=== PATIENT | female | born 1995 | race Caucasian/White ===

== ENCOUNTER → 2017-08-25 | Outpatient (CLI) | payer OTHER ==
[2017-08-25 16:56] LABS: HCT 36.8 % (34.0-46.0); HGB 12.7 gm/dL (11.4-16.0); MCH 29.7 pg (25.0-35.0); MCHC 34.5 g/dL (31.0-37.0); MCV 85.9 fL (80.0-100.0); Mean Platelet Volume 7.3; Platelet Count 252 k/uL (150-450); RBC 4.28 m/uL (3.80-5.40); RDW 12.6 % (11.5-15.5); WBC 7.8 k/uL (4.0-11.0)
[2017-08-25 17:19] LABS: Glucose 75 mg/dL (74-99)
[2017-08-26 02:37] LABS: HIV AB P24 Non-Reactive (Non-Reactive); HIV P24 AG Non-Reactive (Non-Reactive)
--- NOTE | 2017-08-26 12:43 | US ---
EXAMINATION TYPE: Transabdominal DATE OF EXAM: 06/22/17 COMPARISON: NONE CLINICAL HISTORY: Z36 Confirm dates. EXAM PERFORMED: Transabdominal (TA) EXAM MEASUREMENTS: GESTATIONAL AGE / DATING Physician Established: Not yet established Dates by LMP: (8 weeks/4 days) EDC: 04/02/17 Dates by First Scan: No previous this is first scan Dates by Current Scan for: (7 weeks/5 days) EDC: 04/08/18 MATERNAL ANATOMY Uterus: 11.5 x 5.5 x 7.7cm Right Ovary: 3.0 x 2.4 x 2.4cm Left Ovary: 2.8 x 2.4 x 2.5cm Post CDS / Adnexa: wnl Presence of free fluid: no GESTATION / SURVEY CRL: 1.2cm ( 7 weeks/4 days) Yolk Sac (normal less than 6mm): 3mm Heart Rate: 165 bpm Rhythm: Normal IUP: Viable IUP Date of LMP: 06/26/17 Viable IUP. IMPRESSION: Single intrauterine gestation estimated at 7 weeks 4 days gestation based on the crown-rump length. C ardiac activity measures 165 bpm. Calculated EDC based on the current measurements is 04/08/2018.
== END | disposition home or self-care (01) ==
LOC: RADUSWWP 16:12
PROVIDERS: ATTEND Obstetrics & Gynecology
DX: O26.811 Pregnancy related exhaustion and fatigue, first trimester (principal); Z3A.01 Less than 8 weeks gestation of pregnancy
CPT/HCPCS: 36415; 76801; 82565; 82947; 85027; 86762; 86780; 86850; 86900; 86901; 87340; 87390

== ENCOUNTER 2018-04-02 08:05 | Inpatient (IN) | payer OTHER ==
[2018-04-04] MEDS ORDERED: CARBOPROST TROMETHAMINE 250 MCG/ML 1 ML AMP IM PRN (05:00)
[2018-04-04] MEDS ORDERED: OXYTOCIN 20 UNITS/1000 ML NS 1,000 ML IV SCH ×2 (05:00→11:04)
[2018-04-04] MEDS ORDERED: TERBUTALINE 1 MG/ML VIAL SQ PRN (05:00)
[2018-04-04] MEDS ORDERED: LIDOCAINE 0.5% (PF) 5 MG/ML (50 ML SDV) SQ PRN (05:00)
[2018-04-04] MEDS ORDERED: METHYLERGONOVINE 0.2 MG/ML 1 ML AMP IM PRN (05:00)
[2018-04-04] MEDS ORDERED: OXYTOCIN 10 UNIT/ML 1 ML VIAL IM PRN (05:00)
[2018-04-04] MEDS: LACTATED RINGERS 1,000 ML IV SCH ×2 (05:09→08:13)
[2018-04-04 05:40] LABS: Basophils % (A) 0 %; Eosinophils # (A) 0.1 k/uL (0-0.7); Eosinophils % (A) 1 %; HCT 34.6 % (34.0-46.0); HGB 11.5 gm/dL (11.4-16.0); Lymphocytes # (A) 2.3 k/uL (1.0-4.8); Lymphocytes % (A) 22 %; MCHC 33.3 g/dL (31.0-37.0); MCV 84.2 fL (80.0-100.0); Mean Platelet Volume 7.1; Monocytes # (A) 0.4 k/uL (0-1.0); Monocytes % (A) 4 %; Neutrophils # (A) 7.5 k/uL (1.3-7.7); Neutrophils % (A) 71 %; Platelet Count 220 k/uL (150-450); RBC 4.11 m/uL (3.80-5.40); RDW 13.9 % (11.5-15.5); WBC 10.5 k/uL (3.8-10.6)
--- NOTE | 2018-04-04 06:06 | P.HPOB ---
History of Present Illness H&P Date: 04/04/18 Chief Complaint: Leaking of fluid. This patient is a pleasant 23-year-old 2 para 1 female estimated date of confinement 04/02/2018 estimated gestational age 40-2/7 weeks who was initially scheduled for induction was morning however presented at approximately 5 AM with complaints of leaking of fluid since 4 AM. Patient's care has been uncomplicated. Patient does not appear to have gross rupture membranes however rupture membranes does show some light meconium- stained fluid. Review of Systems Gastrointestinal: Reports heartburn Genitourinary: Reports Menstruation: Reports amenorrhea Past Medical History Past Medical History: No Reported History Additional Past Medical History / Comment(s): Patient has had 1 previous vaginal delivery. History of Any Multi-Drug Resistant Organisms: None Reported Past Surgical History: No Surgical Hx Reported Past Anesthesia/Blood Transfusion Reactions: No Reported Reaction Past Psychological History: No Psychological Hx Reported Smoking Status: Never smoker Past Alcohol Use History: None Reported Past Drug Use History: None Reported - Past Family History Father Family Medical History: No Reported History Mother Family Medical History: No Reported History Medications and Allergies Home Medications Medication Instructions Recorded Confirmed Type Pnv,Calcium 72/Iron/Folic Acid 1 each PO DAILY 04/04/18 04/04/18 History [ Plus Tablet] Allergies Allergy/AdvReac Type Severity Reaction Status Date / Time No Known Allergies Allergy Verified 04/04/18 04:59 Exam Intake and Output 04/03/18 04/03/18 04/04/18 14:59 22:59 06:59 Other: Weight 63.503 kg - OBG Physical Exam Abdomen: bowel sounds normal, no diffuse tenderness, no bruit present, no guarding noted, no hepatomegaly, no splenomegaly, no mass Vulva: both: normal Vagina: normal moisture, no discharge Cervix: Cervix is 4 cm dilated 80% effaced -2 station. Uterus: enlarged (Fundal height 38 cm) Results blood work shows she is O positive, rubella immune, RPR nonreactive, hepatitis B negative, HIV nonreactive, Glucola was 93, group B strep was negative, ultrasounds have been normal. Result Diagrams: 04/04/18 05:05 Assessment and Plan Assessment: This is a pleasant 23-year-old 2 para 1 female 40-2/7 weeks gestation who is admitted to labor and delivery with complaints of rupture membranes. Patient is found to be in early labor. Evaluation does show light meconium- stained fluid therefore the anesthesiologist will be alerted to be present the time of delivery. heart tones are reassuring at this time. Plan is Pitocin augmentation of labor and anticipate vaginal delivery. (1) Postmaturity , 40-42 weeks gestation Current Visit: Yes Status: Acute Code(s): O48.0 - POST-TERM SNOMED Code(s): 73082509 (2) Spontaneous rupture of amniotic membranes Current Visit: Yes Status: Acute Code(s): XFJ1985 - SNOMED Code(s): 222746148 (3) Meconium in amniotic fluid Current Visit: Yes Status: Acute Code(s): P96.83 - MECONIUM STAINING SNOMED Code(s): 379641356
[2018-04-04] MEDS ORDERED: ROPIVACAINE 5MG/ML 20ML VIAL ONE (07:22)
[2018-04-04] MEDS ORDERED: SODIUM CHLORIDE 0.9% 100 ML BAG ONE (07:22)
[2018-04-04] MEDS ORDERED: fentaNYL (PF) 50 MCG/ML 5 ML AMP ONE (07:22)
[2018-04-04] MEDS ORDERED: SIMETHICONE 80 MG CHEWABLE PO PRN (11:04)
[2018-04-04] MEDS ORDERED: LANOLIN CREAM 5 GM TUBE TOPICAL PRN (11:04)
[2018-04-04] MEDS ORDERED: ZOLPIDEM 5 MG TAB PO PRN (11:04)
[2018-04-04] MEDS ORDERED: BENZOCAINE/MENTHOL SPRAY 1 GM/SPRAY AEROSOL TOPICAL PRN (11:04)
[2018-04-04] MEDS ORDERED: ACETAMINOPHEN TAB 325 MG TAB PO PRN (11:04)
[2018-04-04] MEDS ORDERED: diphenhydrAMINE 25 MG CAP PO PRN (11:04)
[2018-04-04] MEDS ORDERED: BISACODYL 10 MG SUPP RECTAL PRN (11:04)
[2018-04-04] MEDS ORDERED: WITCH HAZEL 1 EACH MED..PAD TOPICAL PRN (11:04)
[2018-04-04] MEDS ORDERED: diphenhydrAMINE 50 MG/ML 1 ML VIAL IVP PRN (11:04)
[2018-04-04] MEDS ORDERED: HYDROCORTISONE 2.5% RECTAL CREAM 30 GM TUBE RECTAL PRN (11:04)
--- NOTE | 2018-04-04 13:04 | P.PROBDLV ---
Vaginal Delivery Note - . Vaginal Delivery Note: Normal spontaneous vaginal delivery viable female infant Apgars are 8 and 9 delivery time is 1035 hrs. Please see dictated H&P for intimate details of this patient's admission. Brief summary this is a pleasant 23-year-old 2 para 1 female 40-2/7 weeks gestation was initially scheduled for induction this morning but presented earlier with complaints of gush of fluid at about 4:30. Patient's exam does show then meconium-stained fluid. Patient's labor progresses she does get a small amount of Pitocin for augmentation. Patient also gets an epidural for pain control. Labor progresses quickly and she gets to complete. She pushes for approximately 30 minutes and pushes the head to the perineum. Anesthesia and pediatrics is some and for delivery. Posterior perineum is supported we have controlled delivery of the infant's head over the intact perineum. If it at this time does have spontaneous cry. There is a loose nuchal cord. We then have deliver the anterior posterior shoulder and rest this infant's body. Is a vigorous viable female Apgars are 8 and 9 delivery time is 1035 hrs. After delivery of the infant the umbilical cord is doubly clamped and cut after it is done pulsating. Placenta spontaneously delivered intact. Estimated blood loss is 150 mL. There is a first-degree small posterior laceration is repaired with 3-0 Vicryl usual fashion excellent reapproximation is noted. Infant and mother are stable in delivery room. All counts are correct 3. There are no complications.
[2018-04-04] MEDS: IBUPROFEN 600 MG TAB PO PRN (17:00)
[2018-04-04] MEDS: SENNOSIDES-DOCUSATE SODIUM 1 EACH TAB PO SCH ×2 (21:06)
[2018-04-05] MEDS: IBUPROFEN 600 MG TAB PO PRN ×3 (00:16→14:05)
--- NOTE | 2018-04-05 06:05 | P.PNOBGVD ---
Subjective - Subjective Patient reports: Reports appetite normal, Reports voiding normally, Reports pain well controlled, Reports ambulating normally : doing well Objective - Latest Vital Signs Latest vital signs: Vital Signs Temp Pulse Resp BP 04/05/18 00:00 98.1 F 90 16 103/67 04/04/18 20:00 98.3 F 98 16 115/56 04/04/18 15:20 98.8 F 100 16 118/53 04/04/18 12:55 97.8 F 105 H 16 111/59 04/04/18 12:24 99.5 F 100 16 104/59 04/04/18 12:00 98.7 F 116 H 16 98/51 04/04/18 11:55 98.7 F 116 H 16 98/51 04/04/18 11:40 99.0 F 87 16 103/61 04/04/18 11:25 96 16 112/65 04/04/18 11:09 98.5 F 100 16 113/62 04/04/18 10:55 99.8 F H 103 H 16 110/62 Intake and Output 04/04/18 04/04/18 04/05/18 14:59 22:59 06:59 Other: # Voids 1 1 - Exam Lungs: bilateral: normal Chest: Normal S1, Normal S2 Extremities: Present: normal Abdomen: Present: normal appearance, soft Uterus: Present: normal, firm Assessment and Plan Assessment: day #1. Patient is resting without complaints. Vital signs are stable she is afebrile. Patient wishes to go home today. Uterus is firm nontender she is having normal lochia. My impression is that this is a normal course. Plan is to continue routine care discharge home later today. (1) Postmaturity , 40-42 weeks gestation Current Visit: Yes Status: Acute Code(s): O48.0 - POST-TERM SNOMED Code(s): 35869427 (2) Spontaneous rupture of amniotic membranes Current Visit: Yes Status: Acute Code(s): KSZ3556 - SNOMED Code(s): 333354069 (3) Meconium in amniotic fluid Current Visit: Yes Status: Acute Code(s): P96.83 - MECONIUM STAINING SNOMED Code(s): 809556115
--- NOTE | 2018-04-05 06:09 | P.DS ---
Providers Date of admission: 04/04/18 04:53 Expected date of discharge: 04/05/18 Attending physician: Winston Brandon Primary care physician: Stated None - Discharge Diagnosis(es) (1) Postmaturity , 40-42 weeks gestation Current Visit: Yes Status: Acute (2) Spontaneous rupture of amniotic membranes Current Visit: Yes Status: Acute (3) Meconium in amniotic fluid Current Visit: Yes Status: Acute Hospital Course: Please see dictated H&P for intimate details of this patient's admission. Brief summary this is a pleasant 23-year-old 2 para 1 female 40-2/7 weeks gestation admitted to labor and delivery with spontaneous rupture membranes in early labor. Patient was on have a vaginal delivery viable female infant. Please see dictated delivery note. day #1 patient without complaints she wishes to go home. Patient's felt to be stable for discharge home follow up with me in 6 weeks. Procedures: Normal spontaneous vaginal delivery Patient Condition at Discharge: Good Plan - Discharge Summary Discharge Rx Participant: Yes New Discharge Prescriptions: New Ibuprofen [Motrin] 600 mg PO Q6HR PRN #40 tab PRN Reason: Mild Pain Or Fever >= 100.5 No Action Pnv,Calcium 72/Iron/Folic Acid [ Plus Tablet] 1 each PO DAILY Discharge Medication List Pnv,Calcium 72/Iron/Folic Acid [ Plus Tablet] 1 each PO DAILY 04/04/18 [ History] Ibuprofen [Motrin] 600 mg PO Q6HR PRN #40 tab 04/05/18 [Rx] Follow up Appointment(s)/Referral(s): Winston Brandon MD [STAFF PHYSICIAN] - 05/16/18 11:15 am Patient Instructions/Handouts: Vaginal Delivery (DC) Activity/Diet/Wound Care/Special Instructions: No intercourse or anything per vagina for 6 weeks. Please call if any fever, chills, excessive vaginal bleeding, and/or abdominal pain. Discharge Disposition: HOME SELF-CARE
[2018-04-05 08:24] VITALS: BP 106/70; PULSE 72; RESP 18; TEMP 98
[2018-04-05] MEDS: SENNOSIDES-DOCUSATE SODIUM 1 EACH TAB PO SCH (08:25)
[2018-04-05] MEDS ORDERED: DIPH,PERTUS(ACELL)TETVAC-LF 0.5 ML VIAL IM ONE (11:10)
[2018-04-05 23:30] VITALS: BMI 26.4
== END 2018-04-05 14:40 | disposition home or self-care (01) | DRG 807 ==
LOC: 4FBP 04-04 04:53
PROVIDERS: ADMIT Obstetrics & Gynecology; ATTEND Obstetrics & Gynecology
PROC: 10E0XZZ Delivery of Products of Conception, External Approach (ICD-10-PCS; principal; 2018-04-04)
PROC: 0HQ9XZZ Repair Perineum Skin, External Approach (ICD-10-PCS; 2018-04-04)
PROC: 00HU33Z Insertion of Infusion Device into Spinal Canal, Percutaneous Approach (ICD-10-PCS; 2018-04-04)
PROC: 3E0R3BZ Introduction of Anesthetic Agent into Spinal Canal, Percutaneous Approach (ICD-10-PCS; 2018-04-04)
PROC: 3E0234Z Introduction of Serum, Toxoid and Vaccine into Muscle, Percutaneous Approach (ICD-10-PCS; 2018-04-05)
DX: O69.81X0 Labor and delivery complicated by cord around neck, without compression, not applicable or unspecified (principal); Z37.0 Single live birth; O48.0 Post-term pregnancy; O77.0 Labor and delivery complicated by meconium in amniotic fluid; O70.0 First degree perineal laceration during delivery; Z3A.40 40 weeks gestation of pregnancy; Z23 Encounter for immunization; Z79.899 Other long term (current) drug therapy
CPT/HCPCS: 85025; 86850; 86900; 86901; 88307; 90715